=== PATIENT | female | born 1940 | race Caucasian/White ===

== ENCOUNTER 2024-05-14 12:02 | Emergency (ER) | payer OTHER ==
[~2024-05-14] VITALS: Ht 165.1 cm; Wt 113.6 kg
[2024-05-14] MEDS: NITROGLYCERIN 0.4MG/HR TOPICAL PATCH TD ONE (13:00)
[2024-05-14 13:35] LABS: Basophils # (auto) 0.1 10 ^3/uL (0-0.2); Basophils % (auto) 0.7 % (0.0-2.0); Eosinophils # (auto) 0.1 10 ^3/uL (0-0.8); Eosinophils % (auto) 0.8 % (0.0-7.0); Hematocrit 41.8 % (36.0-46.0); Hemoglobin 13.7 g/dL (12.2-16.2); Lymphocytes # (auto) 1.1 10 ^3/uL (0.4-5.4); Lymphocytes % (auto) 9.5 % (10.0-50.0); Mean Corpuscular Hemoglobin 30.2 pg (28.0-32.0); Mean Corpuscular Hgb Conc. 32.8 g/dL (32.0-36.0); Mean Corpuscular Volume 92.3 fL (80.0-100.0); Monocytes # (auto) 0.7 10 ^3/uL (0-1.3); Monocytes % (auto) 6.3 % (0.0-12.0); Neutrophils # (auto) 9.6 10 ^3/uL (1.6-8.6); Neutrophils % (auto) 82.7 % (37.0-80.0); Nucleated Red Blood Cells % 0.2 %; Red Blood Cells 4.53 10^6/uL (4.0-5.20); Red Cell Distribution Width 14.7 % (11.8-14.3); White Blood Cell 11.6 10^3/uL (4.4-10.8)
[2024-05-14 13:41] VITALS: TEMP 99
[2024-05-14 13:43] VITALS: PULSE 82; RESP 22; O2SAT 96
[2024-05-14] MEDS: AZITHROMYCIN 250 MG TAB PO ONE (13:55)
[2024-05-14 14:06] LABS: Alanine Aminotransferase 16 U/L (7-40); Albumin 4.5 g/dL (3.2-4.8); Alkaline Phosphatase 98 U/L (46-116); Anion Gap 7 (5-15); Aspartate Aminotransferase 12 U/L (13-40); BUN/Creatinine Ratio 25.3 (10.0-20.0); Blood Urea Nitrogen 21 mg/dL (9-23); Calcium 9.8 mg/dL (8.7-10.4); Carbon Dioxide 26 mmol/L (20-30); Chloride 110 mmol/L (98-107); Glucose 106 mg/dL (74-106); Magnesium 2.1 mg/dL (1.6-2.6); Potassium 4.4 mmol/L (3.5-5.1); Sodium 143 mmol/L (136-145)
[2024-05-14 14:07] LABS: Bilirubin, Total 0.4 mg/dL (0.2-1.0); Total Protein 6.9 g/dL (5.7-8.2)
[2024-05-14 14:17] LABS: Base Excess 0.2 mmol/L (-2.0-2.0)
[2024-05-14 14:31] VITALS: BP 150/94; PULSE 90; RESP 18; O2SAT 96
[2024-05-14] MEDS ORDERED: FURO1TAB33 PO (15:13)
[2024-05-14] MEDS ORDERED: AZIT-74 PO (15:13)
[2024-05-14] MEDS: FUROSEMIDE 40 MG/4 ML VIAL IV ONE (15:16)
== END 2024-05-14 15:27 | disposition home or self-care (01) ==
LOC: ER 12:08
DX: J18.9 Pneumonia, unspecified organism (principal); E87.70 Fluid overload, unspecified; R60.0 Localized edema; I10 Essential (primary) hypertension; Z98.890 Other specified postprocedural states
CPT/HCPCS: 36415; 36600; 71046; 80053; 82805; 83735; 83880; 84443; 84484; 85025; 93005; 96374; 99285; J1940

== ENCOUNTER 2024-07-18 20:20 | Inpatient (IN) | payer OTHER ==
[~2024-07-18] VITALS: Ht 165.1 cm; Wt 115.2 kg
[~2024-07-18 20:20] MED LIST: AZIT-74 PO; CITA-77 PO; FURO1TAB33 PO; LISI-275 PO; POTA-228 PO
[2024-07-18 20:55] VITALS: RESP 16; O2SAT 94
[2024-07-18 21:28] LABS: Basophils # (auto) 0.1 10 ^3/uL (0-0.2); Basophils % (auto) 0.9 % (0.0-2.0); Eosinophils # (auto) 0 10 ^3/uL (0-0.8); Eosinophils % (auto) 0.2 % (0.0-7.0); Hematocrit 40.6 % (36.0-46.0); Hemoglobin 13.3 g/dL (12.2-16.2); Lymphocytes % (auto) 10.5 % (10.0-50.0); Mean Corpuscular Hemoglobin 29.8 pg (28.0-32.0); Mean Corpuscular Hgb Conc. 32.6 g/dL (32.0-36.0); Mean Corpuscular Volume 91.4 fL (80.0-100.0); Monocytes # (auto) 0.7 10 ^3/uL (0-1.3); Monocytes % (auto) 7.1 % (0.0-12.0); Neutrophils % (auto) 81.3 % (37.0-80.0); Nucleated Red Blood Cells % 0.1 %; Platelet Count (auto) 233 10^3/uL (140-450); Red Blood Cells 4.44 10^6/uL (4.0-5.20); Red Cell Distribution Width 15.5 % (11.8-14.3); White Blood Cell 9.8 10^3/uL (4.4-10.8)
[2024-07-18 21:39] LABS: Chloride 107 mmol/L (98-107); Potassium 3.7 mmol/L (3.5-5.1); Sodium 142 mmol/L (136-145)
[2024-07-18 21:40] LABS: Anion Gap 8 (5-15); Carbon Dioxide 27 mmol/L (20-31)
[2024-07-18 21:41] LABS: Calcium 9.8 mg/dL (8.7-10.4)
[2024-07-18 21:45] LABS: BUN/Creatinine Ratio 15.1 (10.0-20.0); Blood Urea Nitrogen 14 mg/dL (9-23); Glucose 129 mg/dL (74-106)
[2024-07-18] MEDS: FUROSEMIDE 40 MG/4 ML VIAL IV ONE (22:11)
[2024-07-18] MEDS ORDERED: IPRATROPIUM BROM 0.5 MG/2.5ML INH SOL NEB PRN (23:30)
[2024-07-18] MEDS ORDERED: AMPICILLIN & SULBACTAM SODIUM 3 GM in SODIUM CHL 0.9% 100 ML IV SCH (23:30)
[2024-07-18] MEDS ORDERED: MAALOX PLUS or MAALOX 30 ML PO PRN (23:30)
[2024-07-18] MEDS ORDERED: ACETAMINOPHEN 325 MG TAB PO PRN (23:30)
[2024-07-18] MEDS ORDERED: NITROGLYCERIN 0.4 MG SL TAB SL PRN (23:30)
[2024-07-18] MEDS ORDERED: MORPHINE SULFATE INJ 2 MG/ml SYRG IV PRN (23:30)
[2024-07-18] MEDS ORDERED: ALBUTEROL SULF 2.5 MG/0.5ML(0.5%) NEB SOLN NEB PRN (23:30)
[2024-07-19] VITALS (12 sets, daily range): BP systolic 100–157; BP diastolic 62–83; PULSE 68–83; RESP 14–19; TEMP 97.8–98.6; O2SAT 91–98
[2024-07-19] MEDS: ENOXAPARIN SOD 120 MG/0.8 ML SYRINGE SC SCH (00:57)
[2024-07-19] MEDS: metroNIDAZOLE 500MG/100ML 100 ML IV SCH (03:39)
[2024-07-19] MEDS: HYDROcodone-ACET 5/325MG TAB PO PRN (03:39)
[2024-07-19] MEDS ORDERED: HYDR-4902 PO (03:56)
[2024-07-19] MEDS ORDERED: FURO1TAB33 PO (03:58)
[2024-07-19] MEDS ORDERED: POTA-215 PO (03:59)
[2024-07-19] MEDS: cefTRIAXone 1GM/50ML D5W 50 ML IV SCH (04:49)
[2024-07-19] MEDS: SODIUM CHLOR 0.9% PF (SALINE LOCK) 10ML VIAL/SYR IV SCH (05:13)
[2024-07-19] MEDS: FUROSEMIDE 40 MG/4 ML VIAL IV SCH (05:13)
[2024-07-19] MEDS: LORazepam 0.5 MG TAB PO PRN (07:14)
[2024-07-19 08:23] LABS: Basophils # (auto) 0.1 10 ^3/uL (0-0.2); Basophils % (auto) 0.7 % (0.0-2.0); Eosinophils # (auto) 0 10 ^3/uL (0-0.8); Eosinophils % (auto) 0.5 % (0.0-7.0); Hematocrit 39.5 % (36.0-46.0); Hemoglobin 13.4 g/dL (12.2-16.2); Lymphocytes # (auto) 1.4 10 ^3/uL (0.4-5.4); Lymphocytes % (auto) 15.2 % (10.0-50.0); Mean Corpuscular Hemoglobin 30.8 pg (28.0-32.0); Mean Corpuscular Volume 90.5 fL (80.0-100.0); Monocytes # (auto) 0.8 10 ^3/uL (0-1.3); Monocytes % (auto) 8.3 % (0.0-12.0); Neutrophils # (auto) 7.1 10 ^3/uL (1.6-8.6); Neutrophils % (auto) 75.3 % (37.0-80.0); Nucleated Red Blood Cells % 0.1 %; Platelet Count (auto) 251 10^3/uL (140-450); Red Blood Cells 4.36 10^6/uL (4.0-5.20); White Blood Cell 9.5 10^3/uL (4.4-10.8)
[2024-07-19 08:30] LABS: Alanine Aminotransferase 14 U/L (7-40); Alkaline Phosphatase 95 U/L (46-116); Anion Gap 10 (5-15); BUN/Creatinine Ratio 17.2 (10.0-20.0); Blood Urea Nitrogen 16 mg/dL (9-23); Carbon Dioxide 28 mmol/L (20-31); Chloride 107 mmol/L (98-107); Glucose 113 mg/dL (74-106); Potassium 3.8 mmol/L (3.5-5.1); Sodium 145 mmol/L (136-145)
[2024-07-19 08:31] LABS: Albumin 4.3 g/dL (3.2-4.8); Aspartate Aminotransferase 15 U/L (13-40)
[2024-07-19 08:32] LABS: Total Protein 7.2 g/dL (5.7-8.2)
[2024-07-19 08:53] LABS: LDL Cholesterol 88 mg/dL (< 100); Triglycerides 97 mg/dL (< 150)
[2024-07-19 08:55] LABS: Cholesterol 165 mg/dL (< 200); HDL Cholesterol 62 mg/dL (40-59)
[2024-07-19] MEDS: LISINOPRIL 5 MG TAB PO SCH (10:00)
[2024-07-20] VITALS (12 sets, daily range): BP systolic 131–174; BP diastolic 68–91; PULSE 74–82; RESP 14–18; TEMP 98–98.6; O2SAT 92–99
[2024-07-20] MEDS: DOCUSATE SOD 100 MG CAP PO PRN (02:27)
[2024-07-20] MEDS: HYDROmorphone HCL 2 MG/ML VL/or syr IV PRN (02:32)
[2024-07-20 07:16] LABS: Chloride 105 mmol/L (98-107); Potassium 3.3 mmol/L (3.5-5.1); Sodium 142 mmol/L (136-145)
[2024-07-20 07:17] LABS: Anion Gap 11 (5-15); Carbon Dioxide 26 mmol/L (20-31)
[2024-07-20 07:22] LABS: BUN/Creatinine Ratio 14.6 (10.0-20.0); Blood Urea Nitrogen 14 mg/dL (9-23); Glucose 143 mg/dL (74-106)
[2024-07-20 07:23] LABS: Magnesium 2.1 mg/dL (1.6-2.6)
[2024-07-20] MEDS: METOPROLOL TARTRATE 25 MG TAB PO SCH (08:46)
[2024-07-20] MEDS: ONDANSETRON HCL 4 MG/2 ML VIAL IV PRN (10:59)
[2024-07-20] MEDS: POTASSIUM CHL 20 Meq TABLET PO ONE (15:49)
[2024-07-20] MEDS: metOLazone 5 MG TAB PO ONE (15:51)
[2024-07-20] MEDS: LISINOPRIL 5 MG TAB PO ONE (15:52)
[2024-07-20] MEDS: SPIRONOLACTONE 25 MG TAB PO ONE (15:53)
[2024-07-20] MEDS: Ensure HIGH Protein Chocolate 8oz Bottle PO SCH (18:00)
[2024-07-21] VITALS (7 sets, daily range): BP systolic 100–128; BP diastolic 51–70; PULSE 62–84; RESP 14–23; TEMP 98.1–98.7; O2SAT 94–99
[2024-07-21 06:52] LABS: Chloride 104 mmol/L (98-107); Potassium 3.7 mmol/L (3.5-5.1); Sodium 140 mmol/L (136-145)
[2024-07-21 06:53] LABS: Anion Gap 8 (5-15); Calcium 10.1 mg/dL (8.7-10.4); Carbon Dioxide 28 mmol/L (20-31)
[2024-07-21 06:58] LABS: BUN/Creatinine Ratio 14.4 (10.0-20.0); Blood Urea Nitrogen 15 mg/dL (9-23); Glucose 113 mg/dL (74-106)
[2024-07-21 06:59] LABS: Magnesium 2.2 mg/dL (1.6-2.6)
[2024-07-21] MEDS: EMPAGLIFLOZIN 10 MG TAB PO SCH (11:09)
[2024-07-21] MEDS: SPIRONOLACTONE 25 MG TAB PO SCH (11:10)
[2024-07-21] MEDS: LISINOPRIL 5 MG TAB PO SCH (11:12)
[2024-07-21] MEDS: POTASSIUM CHL 20 Meq TABLET PO ONE (15:28)
== END 2024-07-21 20:50 | disposition short-term general hospital (02) | DRG 291 ==
LOC: EDBD 20:20 → ER 20:20 → TELE 23:28 → TELE-CENTR 23:52
PROVIDERS: ADMIT Internal Medicine; ATTEND Internal Medicine
DX: I11.0 Hypertensive heart disease with heart failure (principal); I50.33 Acute on chronic diastolic (congestive) heart failure; J96.21 Acute and chronic respiratory failure with hypoxia; L03.115 Cellulitis of right lower limb; D68.69 Other thrombophilia; Z68.41 Body mass index [BMI] 40.0-44.9, adult; L03.116 Cellulitis of left lower limb; I44.7 Left bundle-branch block, unspecified; I16.0 Hypertensive urgency; I08.1 Rheumatic disorders of both mitral and tricuspid valves; I48.91 Unspecified atrial fibrillation; E66.01 Morbid (severe) obesity due to excess calories; Z88.0 Allergy status to penicillin; Z79.899 Other long term (current) drug therapy; Z85.43 Personal history of malignant neoplasm of ovary; Z90.710 Acquired absence of both cervix and uterus; Z82.49 Family history of ischemic heart disease and other diseases of the circulatory system; Z80.3 Family history of malignant neoplasm of breast; Z79.01 Long term (current) use of anticoagulants
CPT/HCPCS: 36415; 71045; 80048; 80053; 80061; 81001; 82306; 83036; 83735; 83880; 84443; 84484; 85025; 93005; 93306; 93970; 97110; 97163; 99291; G0378; J2405; J3490